=== PATIENT | female | born 1980 | race Caucasian/White ===

== ENCOUNTER 2018-04-30 19:02 | Emergency (ER) | payer MEDICAID ==
[~2018-04-30] VITALS: Ht 160 cm; Wt 75.0 kg
[~2018-04-30 19:02] MED LIST: ACET-2144 PO; CYAN1TAB41 PO; ESCI20TA29 PO; HYDR-4353 PO; MACROBID PO
[2018-04-30 19:12] VITALS: BP 141/88
[2018-04-30] MEDS ORDERED: PENI500T2 PO (21:12)
== END 2018-04-30 21:24 | disposition home or self-care (01) ==
LOC: ER 19:02
DX: K04.7 Periapical abscess without sinus (principal); F12.90 Cannabis use, unspecified, uncomplicated
CPT/HCPCS: 41800; 99283

== ENCOUNTER 2018-07-17 15:11 | Emergency (ER) | payer MEDICAID ==
[~2018-07-17] VITALS: Ht 160 cm; Wt 85.0 kg
[~2018-07-17 15:11] MED LIST changes: +SULF1TAB48 PO
[2018-07-17 16:42] VITALS: BP 106/67
[2018-07-17] MEDS ORDERED: LIDOcaine 1% w/epiNEPHrine 1:200,000 30ml vial IM ONE (17:25)
== END 2018-07-17 18:07 | disposition home or self-care (01) ==
LOC: ER 15:11
DX: L02.31 Cutaneous abscess of buttock (principal); F12.90 Cannabis use, unspecified, uncomplicated; Z86.14 Personal history of Methicillin resistant Staphylococcus aureus infection; Z98.890 Other specified postprocedural states; Z79.899 Other long term (current) drug therapy
CPT/HCPCS: 10060; 99283; J3490

== ENCOUNTER 2018-10-20 18:06 | Emergency (ER) | payer MEDICAID ==
[~2018-10-20] VITALS: Ht 160 cm; Wt 80.6 kg
[~2018-10-20 18:06] MED LIST changes: -SULF1TAB48 PO
[2018-10-20] MEDS ORDERED: LIDOcaine 5% patch TP STA (18:58)
[2018-10-20] MEDS ORDERED: LIDO700A32 TOP (19:00)
[2018-10-20] MEDS ORDERED: ketorolac tromethamine 15mg/ml inj. IM ONE (19:00)
[2018-10-20 19:14] VITALS: BP 138/86
== END 2018-10-20 19:17 | disposition home or self-care (01) ==
LOC: ER 18:06
DX: S46.812A Strain of other muscles, fascia and tendons at shoulder and upper arm level, left arm, initial encounter (principal); F12.90 Cannabis use, unspecified, uncomplicated; Z79.899 Other long term (current) drug therapy; X50.1XXA Overexertion from prolonged static or awkward postures, initial encounter; Y93.39 Activity, other involving climbing, rappelling and jumping off; Y92.89 Other specified places as the place of occurrence of the external cause; Y99.9 Unspecified external cause status
CPT/HCPCS: 96372; 99283; J1885

== ENCOUNTER 2020-03-28 21:18 | Emergency (ER) | payer MEDICAID ==
[~2020-03-28] VITALS: Ht 160 cm; Wt 63.0 kg
[~2020-03-28 21:18] MED LIST changes: -ACET-2144 PO; +ACET-3209 PO; +LIDO700A32 TOP
[2020-03-28 21:38] VITALS: BP 141/95
[2020-03-28 22:06] LABS: URINE HCG NEGATIVE (NEG)
[2020-03-28] MEDS ORDERED: PENICILLIN G BENZATHINE 2,400,000 UNIT/4 ML SYRINGE IM STA (22:12)
[2020-03-28] MEDS ORDERED: CefTRIAXone 1000mg IM Kit (w/lidocaine diluent) IM STA (22:12)
[2020-03-28] MEDS ORDERED: azithromycin 250mg tablet PO ONE (22:15)
[2020-03-28] MEDS ORDERED: METR500T PO (22:28)
[2020-03-28 22:32] LABS: CLARITY,URINE CLEAR (Clear); COLOR,URINE YELLOW (Yellow); GLUCOSE, URINE NEGATIVE (Neg); KETONES,URINE >=80 mg/dl (Neg); LEUKOCYTE ESTERASE ,URINE NEGATIVE (Neg); NITRITES, URINE NEGATIVE (Neg); OCCULT BLOOD,URINE LARGE (Neg); PROTEIN,URINE TRACE mg/dl (Neg); UROBILINOGEN,URINE 0.2 E.U/dL (0.2-1.0)
[2020-03-28 22:36] LABS: UA COLLECTION TYPE CLN CATCH MIDSTREAM
[2020-03-28 22:37] LABS: BACTERIA,URINE NONE SEEN /HPF (Neg); RBC,URINE 50-100 /HPF (0-2); SQUAMOUS EPITHELIAL CELL,UR MODERATE /LPF (FEW); WBC,URINE 0-4 /HPF (0-4)
== END 2020-03-28 22:48 | disposition home or self-care (01) ==
LOC: ER 21:19
DX: Z20.2 Contact with and (suspected) exposure to infections with a predominantly sexual mode of transmission (principal); F12.90 Cannabis use, unspecified, uncomplicated; Z87.440 Personal history of urinary (tract) infections; Z86.14 Personal history of Methicillin resistant Staphylococcus aureus infection; Z98.891 History of uterine scar from previous surgery; Z79.899 Other long term (current) drug therapy
CPT/HCPCS: 36415; 81001; 81025; 86592; 87491; 87591; 96372; 99284; J0561; J0696

== ENCOUNTER 2020-08-14 19:39 | Emergency (ER) | payer MEDICAID ==
[~2020-08-14] VITALS: Ht 160 cm; Wt 167.0 kg
[2020-08-14 19:42] VITALS: BP 137/82
[2020-08-14] MEDS ORDERED: METR-159 PO (20:40)
== END 2020-08-14 22:00 | disposition home or self-care (01) ==
LOC: ER 19:40
DX: N76.0 Acute vaginitis (principal); F32.9 Major depressive disorder, single episode, unspecified; F12.90 Cannabis use, unspecified, uncomplicated; Z87.440 Personal history of urinary (tract) infections; Z86.14 Personal history of Methicillin resistant Staphylococcus aureus infection; Z98.890 Other specified postprocedural states; Z79.899 Other long term (current) drug therapy; Z79.2 Long term (current) use of antibiotics
CPT/HCPCS: 99284

== ENCOUNTER 2020-11-02 08:38 | Emergency (ER) | payer MEDICAID ==
[~2020-11-02] VITALS: Ht 160 cm; Wt 77.0 kg
[2020-11-02 08:48] VITALS: BP 129/94
== END 2020-11-02 10:31 | disposition home or self-care (01) ==
LOC: ER 08:39
DX: F19.10 Other psychoactive substance abuse, uncomplicated (principal); Z20.822 Contact with and (suspected) exposure to COVID-19; M79.10 Myalgia, unspecified site; F32.9 Major depressive disorder, single episode, unspecified; F12.90 Cannabis use, unspecified, uncomplicated; Z86.14 Personal history of Methicillin resistant Staphylococcus aureus infection; Z87.440 Personal history of urinary (tract) infections; Z98.890 Other specified postprocedural states; Z79.899 Other long term (current) drug therapy
CPT/HCPCS: 87635; 99283; C9803

== ENCOUNTER 2021-03-25 05:53 | Emergency (ER) | payer MEDICAID ==
[~2021-03-25] VITALS: Ht 160 cm; Wt 88.6 kg
[2021-03-25 06:30] VITALS: BP 157/91
[2021-03-25] MEDS ORDERED: oxymetazoline 15 ML nasal spray NS ONE (06:50)
[2021-03-25] MEDS ORDERED: ibuprofen tablet 400 MG TABLET PO ONE (06:50)
== END 2021-03-25 07:34 | disposition home or self-care (01) ==
LOC: ER 05:54
DX: U07.1 COVID-19 (principal); R51.9 Headache, unspecified; R09.89 Other specified symptoms and signs involving the circulatory and respiratory systems; R50.9 Fever, unspecified; F32.9 Major depressive disorder, single episode, unspecified; F17.200 Nicotine dependence, unspecified, uncomplicated; F12.90 Cannabis use, unspecified, uncomplicated; Z86.14 Personal history of Methicillin resistant Staphylococcus aureus infection; Z87.440 Personal history of urinary (tract) infections; Z98.890 Other specified postprocedural states; Z79.899 Other long term (current) drug therapy
CPT/HCPCS: 87635; 99283; C9803

== ENCOUNTER 2023-06-30 07:50 | Outpatient (CLI) | payer MEDICAID ==
[2023-06-30] MEDS ORDERED: iohexol 300mg/ml 100ml inj. ONE (08:05)
== END 2023-06-30 23:59 | disposition home or self-care (01) ==
LOC: RAD 07:50
PROVIDERS: ATTEND Family Medicine
DX: R10.32 Left lower quadrant pain (principal); R14.0 Abdominal distension (gaseous)
CPT/HCPCS: 74018; 74177; J3490; Q9967

== ENCOUNTER 2023-08-29 10:33 | Emergency (ER) | payer MEDICAID ==
[~2023-08-29] VITALS: Ht 160 cm; Wt 84.7 kg
[2023-08-29] MEDS: TETanus/Pertussis (Acell)/Diphther VAC/PF (Tdap-Adult) 0.5ml syringe IMVAC ONE (11:16)
[2023-08-29] MEDS ORDERED: AMOX-580 PO (11:18)
[2023-08-29 11:28] VITALS: BP 136/90; PULSE 98; RESP 16; TEMP 98.5; O2SAT 98
== END 2023-08-29 11:29 | disposition home or self-care (01) ==
LOC: ER 10:33
DX: S51.851A Open bite of right forearm, initial encounter (principal); F32.A Depression, unspecified; Z98.890 Other specified postprocedural states; F12.90 Cannabis use, unspecified, uncomplicated; W54.0XXA Bitten by dog, initial encounter; Z79.1 Long term (current) use of non-steroidal anti-inflammatories (NSAID); Z79.899 Other long term (current) drug therapy; Y93.89 Activity, other specified; Y92.89 Other specified places as the place of occurrence of the external cause; Y99.8 Other external cause status
CPT/HCPCS: 90471; 90715; 99283

== ENCOUNTER 2023-10-22 23:56 | Emergency (ER) | payer MEDICAID ==
[~2023-10-22] VITALS: Ht 165.1 cm; Wt 82.8 kg
[2023-10-23 00:04] VITALS: BP 138/91; PULSE 102; RESP 16; TEMP 98; O2SAT 100
[2023-10-23] MEDS: acetaminophen 325mg tablet PO ONE (00:36)
== END 2023-10-23 06:33 | disposition home or self-care (01) ==
LOC: ER 23:57
DX: S00.03XA Contusion of scalp, initial encounter (principal); F32.A Depression, unspecified; F12.90 Cannabis use, unspecified, uncomplicated; Z79.1 Long term (current) use of non-steroidal anti-inflammatories (NSAID); Z79.899 Other long term (current) drug therapy; Z98.890 Other specified postprocedural states; Y08.89XA Assault by other specified means, initial encounter; Y93.89 Activity, other specified; Y92.89 Other specified places as the place of occurrence of the external cause; Y99.8 Other external cause status
CPT/HCPCS: 99282

== ENCOUNTER 2024-10-26 21:04 | Emergency (ER) | payer MEDICAID ==
[~2024-10-26] VITALS: Ht 165.1 cm; Wt 79.5 kg
[~2024-10-26 21:04] MED LIST changes: +LIDO-52 TOP; -LIDO700A32 TOP
[2024-10-26 21:10] VITALS: BP 142/83; PULSE 92; RESP 16; O2SAT 98
--- NOTE | 2024-10-26 23:30 | Physician Documentation ---
History of Present Illness ~ Chief Complaint: Laceration Stated Complaint: FINGER LAC Time Seen by MD: 23:18 Primary Medical Doctor: [facility] HPI 44-year-old female patient presents to the ED with complaining of a laceration on her right hand including both her middle finger in index finger. States she is grabbed something off the shelf today when she fell , glass broke cutting her finger. Patient denies any numbness or tingling can has full range of motion. States she is up-to-date on her tetanus Day of Onset: Oct 26, 2024 Tetanus Within 5 Years: Yes (AUGUST 2023) Medication Reconciliation Allergies: Coded Allergies: No Known Allergies (Unverified , 10/26/24) Scheduled Acetaminophen (Tylenol), 650 MG PO PRN, (Reported) Cyanocobalamin/Folic Acid (Vitamin S18-Pteat Acid Tablet), 1 EACH PO DAILY, (Reported) Escitalopram Oxalate* (Lexapro*), 20 MG PO HS, (Reported) Escitalopram Oxalate* (Lexapro*), 20 MG PO DAILY, (Reported) Hydrocodone Bit/Acetaminophen ([place] 10-325 Tablet), 1 TAB PO Q6H Lidocaine (Lidoderm), 1 PATCH TOP Q12H PRN Nitrofurantoin/Nitrofuran Mac* (Macrobid*), 100 MG PO BID Past Medical History Past Medical History: UTI, MRSA Abscess, Depression Past Surgical History: Alcohol Use: None Drug Use: marijuana Lives with: Family Lives In: Home Occupation: employed Review of Systems All Other Systems at this time: Reviewed and Negative ROS As stated above in the HPI, otherwise all systems are reviewed and negative. Physical Exam Vital Signs: Temperature: 98.7, Source: Temporal, Heart Rate: 92, Respiratory Rate: 16, BP: 142/83, Pulse Oximetry: 98, Weight: 79.550 Oxygen Flow Rate: 0 Physical Exam General: Alert, no apparent distress. Extremities: Normal range of motion, no deformity. 5 cm u shaped lac on proxmal / posterior aspect of right index finger Neurologic: Oriented x4. Psychiatric: Normal mood and affect. Skin: Normal color, warm and dry. No edema, no ecchymosis. Procedures Laceration/Wound Repair Laceration : Anesthesia: Lidocaine Repaired: skin Wound Repaired With: sutures Number of Superficial Sutures: 12 Deep Layer Suture Size/Type: 4-0 Dressing Applied: simple Tolerated Procedure Well?: yes, no complications Progress Results/Orders Results/Orders Orders - BJ DEAL NP Tetanus/Pertuss/Diph Acell/Pf (Boostrix (10/26/24 23:30) Laceration/I&D Tray Set Up (10/26/24 ) Completed Orders - BJ DEAL NP Lidocaine 1% 30ml Vial (Xylocaine 1% Via (10/26/24 23:27) Vital Signs 10/26/24 21:10 Temp 98.7 Pulse 92 Resp 16 B/P (MAP) 142/83 Pulse Ox 98 O2 Flow Rate 0 Medical Decision Making Findings Wound was repaired without difficulty is primarily on her right index finger traveling all way to the base of the finger acquired swept 12 sutures wound was well approximated. Start patient on antibiotics as a precaution Differential Dx:Considerations: Include: Abrasion, Avulsion, Contusion, Laceration, Fracture, Hematoma, Neurovascular injury, Retained foreign body, Other Departure Disposition: 01 HOME / SELF CARE / HOMELESS Impression: Primary Impression: Laceration Condition: Stable Discharge Instructions: Laceration Care, Adult, [id number] Additional Instructions: The wound clean and dry sutures need to come out in 7-10 days Referrals: NO PRIMARY CARE PROVIDER (PCP) Prescriptions Cephalexin*Monohydrate* (Keflex*) 500 Mg Capsule 1 CAP PO QID, #40 CAP Prov: BJ DEAL NP 10/27/24 Signature Scribe Signature: b Attestation: Scribed for Bj Deal Np by Bj Higgins NP . 10/27/24 00:12 BJ DEAL NP Oct 26, 2024 23:30
[2024-10-26] MEDS: LIDOcaine 1% 30ml preserv. free vial SQ STA (23:35)
[2024-10-26] MEDS: TETanus/Pertussis (Acell)/Diphther VAC/PF (Tdap-Adult) 0.5ml syringe IMVAC ONE (23:38)
[2024-10-27] MEDS ORDERED: CEPH-585 PO (00:12)
[2024-10-27 00:18] VITALS: TEMP 98.7
== END 2024-10-27 00:22 | disposition home or self-care (01) ==
LOC: ER 21:04
DX: S61.411A Laceration without foreign body of right hand, initial encounter (principal); S61.212A Laceration without foreign body of right middle finger without damage to nail, initial encounter; F32.A Depression, unspecified; F12.90 Cannabis use, unspecified, uncomplicated; Z79.899 Other long term (current) drug therapy; W20.8XXA Other cause of strike by thrown, projected or falling object, initial encounter; Y93.89 Activity, other specified; Y92.89 Other specified places as the place of occurrence of the external cause; Y99.8 Other external cause status
CPT/HCPCS: 12002; 99283; A6258; A6449